=== PATIENT | male | born 1960 | race Caucasian/White ===

== ENCOUNTER 2017-07-17 07:06 | Day surgery (SDC) | payer OTHER ==
[~2017-07-17] VITALS: Ht 180.3 cm; Wt 109.3 kg
[~2017-07-17 07:06] MED LIST: BUPIVACAINE/PF 0.5% ONE; EPINEPHRINE 1 MG/ML, 1ML ONE; None per pt
[2017-07-17] MEDS ORDERED: LACTATED RINGERS 1,000 ML IV SCH (07:25)
[2017-07-17 07:31] VITALS: BP 138/90
[2017-07-17] MEDS ORDERED: MIDAZOLAM 1 MG/ML, 2ML ONE (08:16)
[2017-07-17] MEDS ORDERED: FENTANYL PF 100 MCG/2ML ONE ×2 (08:16→08:28)
[2017-07-17] MEDS ORDERED: KETOROLAC 30 MG/1 ML ONE (08:34)
[2017-07-17] MEDS ORDERED: DEXAMETHASONE 4 MG/ML, 1ML ONE (08:34)
[2017-07-17] MEDS ORDERED: CEFAZOLIN 1,000 MG ONE ×2 (08:34)
[2017-07-17] MEDS ORDERED: PROPOFOL 10 MG/ML, 20ML ONE (08:34)
[2017-07-17] MEDS ORDERED: ONDANSETRON 2MG/ML, 2ML ONE (08:34)
[2017-07-17] MEDS ORDERED: OXYcodone 5 MG/5 ML ORAL.SOL UDC PO PRN (09:00)
[2017-07-17] MEDS ORDERED: ONDANSETRON 2MG/ML, 2ML IVPush PRN (09:00)
[2017-07-17] MEDS ORDERED: MEPERIDINE/PF 25MG/0.5ML IVPush PRN (09:00)
[2017-07-17] MEDS ORDERED: HYDROmorphone 1 MG/ML, 1ML IV PRN (09:00)
[2017-07-17] MEDS ORDERED: ACETAMINOPHEN 325 MG TABLET PO PRN (09:00)
[2017-07-17] MEDS ORDERED: FENTANYL PF 100 MCG/2ML IV PRN (09:00)
[2017-07-17] MEDS ORDERED: LABETALOL 5MG/ML, 20ML IV PRN (09:00)
[2017-07-17] MEDS ORDERED: ALBUTEROL/IPRATROPIUM 2.5MG/0.5MG, 3 ML NPPB PRN (09:00)
[2017-07-17] MEDS ORDERED: PROMETHAZINE 12.5 MG SUPP PR PRN (09:00)
[2017-07-17] MEDS ORDERED: DIAZEPAM 5 MG/ML, 2ML IVPush PRN (09:00)
[2017-07-17] MEDS ORDERED: hydrALAzine 20 MG/ML, 1ML IV PRN (09:00)
[2017-07-17] MEDS ORDERED: MIDAZOLAM 1 MG/ML, 2ML IV PRN (09:00)
[2017-07-17] MEDS ORDERED: ACETAMINOPHEN 325 MG TABLET ONE (09:20)
[2017-07-17] MEDS ORDERED: ACETAMINOPHEN 650 MG/20.3 ML UDC ONE (09:20)
[2017-07-17] MEDS ORDERED: OXYcodone 5 MG/5 ML ORAL.SOL UDC ONE (09:22)
== END 2017-07-17 11:20 ==
LOC: OUT 07:06
PROVIDERS: ATTEND Surgery
DX: K43.0 Incisional hernia with obstruction, without gangrene (principal); F17.210 Nicotine dependence, cigarettes, uncomplicated; Z90.49 Acquired absence of other specified parts of digestive tract
CPT/HCPCS: 49561; 49568; C1781; J0171; J0690; J1100; J1885; J2250; J2405; J2704; J3010; J3490; J7120

== ENCOUNTER → 2018-11-28 | Outpatient (CLI) | payer OTHER ==
[~2018-11-28] MED LIST changes: -BUPIVACAINE/PF 0.5% ONE; +CLOP75TA52 PO; -EPINEPHRINE 1 MG/ML, 1ML ONE; +LISI2.5T PO; +METO25TA91 PO; +SIMV20TA3 PO
[2018-11-28 12:14] LABS: ALBUMIN 3.8 g/dL (3.4-5.0); ANION GAP 6 mmol/L (5-15); CALCIUM 8.8 mg/dL (8.5-10.1); CHLORIDE 105 mmol/L (98-107)
[2018-11-28 12:19] LABS: ALANINE AMINOTRANSFERASE 25 U/L (12-78); ALKALINE PHOSPHATASE 66 U/L (45-117); BILIRUBIN,TOTAL 0.6 mg/dL (0.2-1.0); CREATININE 1.09 mg/dL (0.7-1.3); TOTAL PROTEIN 7.8 g/dL (6.4-8.2)
== END | disposition home or self-care (01) ==
LOC: STAR 10:44
PROVIDERS: ATTEND Surgery
DX: Z01.818 Encounter for other preprocedural examination (principal); K43.9 Ventral hernia without obstruction or gangrene
CPT/HCPCS: 36415; 80053; 93005

== ENCOUNTER 2018-12-03 05:43 | Day surgery (SDC) | payer OTHER ==
[~2018-12-03] VITALS: Ht 180.3 cm; Wt 108.9 kg
[2018-12-03 06:21] VITALS: BP 113/75
[2018-12-03] MEDS ORDERED: LACTATED RINGERS 1,000 ML IV SCH (06:24)
[2018-12-03] MEDS ORDERED: BUPIVACAINE/PF 0.5% ONE (06:45)
[2018-12-03] MEDS ORDERED: EPINEPHRINE 1 MG/ML, 1ML ONE (06:45)
[2018-12-03] MEDS ORDERED: PROPOFOL 50 ML ONE (07:43)
[2018-12-03] MEDS ORDERED: FENTANYL PF 250 MCG/5ML ONE ×2 (07:43→08:32)
[2018-12-03] MEDS ORDERED: MIDAZOLAM 1 MG/ML, 2ML ONE (07:43)
[2018-12-03] MEDS ORDERED: SUCCINYLCHOLINE 20 MG/ML, 10ML ONE ×2 (07:46→08:32)
[2018-12-03] MEDS ORDERED: DEXAMETHASONE 4 MG/ML, 1ML ONE ×2 (07:47→08:32)
[2018-12-03] MEDS ORDERED: ONDANSETRON 2MG/ML, 2ML ONE ×2 (07:47→08:32)
[2018-12-03] MEDS ORDERED: KETOROLAC 30 MG/1 ML ONE (08:32)
[2018-12-03] MEDS ORDERED: ROCURONIUM 10MG/ML,5ML ONE (08:32)
[2018-12-03] MEDS ORDERED: PROPOFOL 10 MG/ML, 20ML ONE (08:32)
[2018-12-03] MEDS ORDERED: CEFAZOLIN 1,000 MG ONE (08:32)
[2018-12-03] MEDS ORDERED: MIDAZOLAM 1 MG/ML, 5ML ONE (08:32)
[2018-12-03] MEDS ORDERED: BUPIVACAINE/PF 0.5% INFIL ONE (08:54)
[2018-12-03] MEDS ORDERED: EPINEPHRINE 1 MG/ML, 1ML INFIL ONE (08:55)
[2018-12-03] MEDS ORDERED: OXYcodone 5 MG/5 ML ORAL.SOL UDC PO PRN (09:00)
[2018-12-03] MEDS ORDERED: hydrALAzine 20 MG/ML, 1ML IV PRN (09:00)
[2018-12-03] MEDS ORDERED: ONDANSETRON ODT 8 MG PO PRN (09:00)
[2018-12-03] MEDS ORDERED: MIDAZOLAM 1 MG/ML, 2ML IV PRN (09:00)
[2018-12-03] MEDS ORDERED: EPHEDRINE 50 MG/ML, 1ML IM PRN (09:00)
[2018-12-03] MEDS ORDERED: DIPHENHYDRAMINE 50 MG/ML, 1ML IVPush PRN (09:00)
[2018-12-03] MEDS ORDERED: MEPERIDINE/PF 25MG/0.5ML IVPush PRN (09:00)
[2018-12-03] MEDS ORDERED: PROMETHAZINE 25 MG/ML, 1ML IV PRN (09:00)
[2018-12-03] MEDS ORDERED: METOPROLOL 1 MG/ML, 5ML IV PRN (09:00)
[2018-12-03] MEDS ORDERED: EPHEDRINE 50 MG/ML, 1ML IVPush PRN (09:00)
[2018-12-03] MEDS ORDERED: DIAZEPAM 5 MG/ML, 2ML IVPush PRN (09:00)
[2018-12-03] MEDS ORDERED: FENTANYL PF 100 MCG/2ML IV PRN (09:00)
[2018-12-03] MEDS ORDERED: ACETAMINOPHEN 325 MG TABLET PO PRN (09:00)
[2018-12-03] MEDS ORDERED: MORPHINE SULFATE 4 MG/ML, 1ML IVPush PRN (09:00)
[2018-12-03] MEDS ORDERED: ONDANSETRON 2MG/ML, 2ML IV PRN (09:00)
[2018-12-03] MEDS ORDERED: OXYcodone 5 MG/5 ML ORAL.SOL UDC ONE (09:52)
== END 2018-12-03 11:40 | disposition home or self-care (01) ==
LOC: OUT 05:43
PROVIDERS: ATTEND Surgery
DX: K43.0 Incisional hernia with obstruction, without gangrene (principal); I10 Essential (primary) hypertension; I25.10 Atherosclerotic heart disease of native coronary artery without angina pectoris; I25.2 Old myocardial infarction; F17.210 Nicotine dependence, cigarettes, uncomplicated; Z79.02 Long term (current) use of antithrombotics/antiplatelets; Z79.899 Other long term (current) drug therapy; Z90.49 Acquired absence of other specified parts of digestive tract; Z95.5 Presence of coronary angioplasty implant and graft; Z98.890 Other specified postprocedural states; Z83.3 Family history of diabetes mellitus; Z80.9 Family history of malignant neoplasm, unspecified
CPT/HCPCS: 49657; C1781; J0171; J0330; J0690; J1100; J1885; J2250; J2405; J2704; J3010; J7120